=== PATIENT | female | born 1960 | race Two or more races ===

== ENCOUNTER 2017-06-03 10:00 | Emergency (ER) | payer OTHER ==
[~2017-06-03] VITALS: Ht 157.5 cm; Wt 83.0 kg
[2017-06-03] MEDS ORDERED: AVAPRO75 MG (10:08)
[2017-06-03] MEDS ORDERED: TOPROL XL50 M1 (10:09)
[2017-06-03] MEDS ORDERED: NEURONTIN300 MG (10:09)
== END 2017-06-03 11:51 | disposition home or self-care (01) ==
LOC: ER 10:00
DX: M54.5 Low back pain (principal)

== ENCOUNTER 2017-08-26 10:34 | Emergency (ER) | payer OTHER ==
[~2017-08-26] VITALS: Ht 157.5 cm; Wt 81.6 kg
[~2017-08-26 10:34] MED LIST: AVAPRO75 MG; NEURONTIN300 MG; TOPROL XL50 M1
== END 2017-08-26 12:18 | disposition home or self-care (01) ==
LOC: ER 10:34
DX: M54.2 Cervicalgia (principal); M62.838 Other muscle spasm; M54.5 Low back pain; M54.89 Other dorsalgia

== ENCOUNTER 2018-03-01 12:25 | Emergency (ER) | payer OTHER ==
[~2018-03-01] VITALS: Ht 157.5 cm; Wt 78.0 kg
[2018-03-01] MEDS ORDERED: COZAAR100 MG (13:17)
[2018-03-01] MEDS ORDERED: NORFLEX100MG (13:17)
== END 2018-03-01 19:41 | disposition home or self-care (01) ==
LOC: ER 12:25
DX: J06.9 Acute upper respiratory infection, unspecified (principal); J20.9 Acute bronchitis, unspecified

== ENCOUNTER 2018-05-06 10:10 | Emergency (ER) | payer OTHER ==
[~2018-05-06] VITALS: Ht 157.5 cm; Wt 78.0 kg
[~2018-05-06 10:10] MED LIST changes: +COZAAR100 MG; +NORFLEX100MG
== END 2018-05-06 13:14 | disposition home or self-care (01) ==
LOC: ER 10:10
DX: M54.5 Low back pain (principal); M54.2 Cervicalgia

== ENCOUNTER 2018-12-14 09:33 | Emergency (ER) | payer OTHER ==
[~2018-12-14] VITALS: Ht 157.5 cm; Wt 84.8 kg
== END 2018-12-14 12:35 | disposition home or self-care (01) ==
LOC: ER 09:33
DX: G89.29 Other chronic pain (principal); M54.5 Low back pain

== ENCOUNTER 2023-03-09 09:54 | Emergency (ER) | payer OTHER ==
[~2023-03-09] VITALS: Ht 157.5 cm; Wt 77.1 kg
== END 2023-03-09 16:47 | disposition home or self-care (01) ==
LOC: ER 09:55
DX: M51.26 Other intervertebral disc displacement, lumbar region (principal); M48.02 Spinal stenosis, cervical region; M50.30 Other cervical disc degeneration, unspecified cervical region; Z88.6 Allergy status to analgesic agent; I49.8 Other specified cardiac arrhythmias; I10 Essential (primary) hypertension; G62.89 Other specified polyneuropathies